=== PATIENT | female | born 1970 | race Caucasian/White ===

== ENCOUNTER 2021-02-06 17:11 | Observation (INO) ==
[2021-02-06] MEDS ORDERED: 0.9 % Sodium Chloride 1,000 ML IVC SCH (18:45)
[2021-02-06] MEDS ORDERED: Ondansetron 4 MG/2 ML VIAL IVP ONE (18:58)
[2021-02-06] MEDS ORDERED: *HR* HYDROmorphone (PF) 1 MG/ML SYRINGE IVP ONE (18:58)
[2021-02-06] MEDS ORDERED: Ondansetron 4 MG/2 ML VIAL IVP PRN (19:43)
[2021-02-06] MEDS ORDERED: Naloxone 0.4 MG/ML INJ IVP PRN (19:43)
[2021-02-06] MEDS ORDERED: modafiniL 100 MG TABLET PO PRN (19:47)
[2021-02-06 20:13] LABS: Bilirubin,Urine Negative (Negative); Blood,Urine Negative (Negative); Clarity,Urine Clear (Clear); Color,Urine Colorless (Yellow); Glucose,Urine (UA) Normal (Normal); Ketones,Urine 20 mg/dL (Negative); Leukocyte Esterase,Urine Negative (Negative); Nitrite,Urine Negative (Negative); PH,Urine 6.5 pH Units (5.0-8.0); Protein,Urine Trace mg/dL (Neg-Trace); Urobilinogen,Urine Normal (Normal)
[2021-02-06 20:16] LABS: Amphetamine Screen,Urine Negative ng/mL (Cutoff=1000); Barbiturate Screen,Urine Negative ng/mL (Cutoff=200); Benzodiazepines Screen,Urine Negative ng/mL (Cutoff=200); Cannabinoid Screen,Urine Negative ng/mL (Cutoff = 50); Cocaine Screen,Urine Negative ng/mL (Cutoff= 300); Opiate Screen,Urine Positive ng/mL (Cutoff=300); Phencyclidine Screen,Urine Negative ng/mL (Cutoff=25)
[2021-02-06 20:29] LABS: Ethanol < 10 mg/dL (Less than 10); Lipase > 1800 Units/L (11-82)
[2021-02-06] MEDS: *HR* HYDROmorphone (PF) 1 MG/ML SYRINGE IVP PRN (22:28)
[2021-02-06] MEDS: Ringers Solution, Lactated 1,000 ML IVC SCH (22:44)
[2021-02-07] MEDS: *HR* HYDROmorphone (PF) 1 MG/ML SYRINGE IVP PRN ×5 (02:44→23:18)
[2021-02-07 05:54] LABS: Prothrombin Time 10.9 Seconds (9.4-12.1)
[2021-02-07 06:02] LABS: Basophils % 0.2 %; Eosinophils # 0.1 K/mcL (0.0-0.6); Eosinophils % 1.3 %; Hematocrit 42.6 % (35.3-44.9); Hemoglobin 14.6 g/dL (11.5-15.4); Immature Granulocytes % 0.2 % (0-4); Lymphocytes # 0.8 K/mcL (0.6-4.6); Lymphocytes % 14.6 %; Mean Corpuscular HGB Conc 34.3 g/dL (31.6-35.5); Mean Corpuscular Hemoglobin 34.2 pg (28.0-33.3); Mean Corpuscular Volume 99.8 fL (83.0-100.0); Monocytes # 0.3 K/mcL (0.0-1.3); Monocytes % 5.5 %; Neutrophils # 4.1 K/mcL (1.6-8.9); Platelet Count 143 K/mcL (140-400); Red Blood Count 4.27 M/mcL (3.82-4.97); Red Cell Distribution Width 13.5 % (11.5-14.5); Segmented Neutrophils % 78.2 %; White Blood Count 5.3 K/mcL (4.3-11.1)
[2021-02-07] MEDS: Ringers Solution, Lactated 1,000 ML IVC SCH ×5 (06:04→18:54)
[2021-02-07 06:18] LABS: BUN/Creatinine Ratio 10 (6-26); Blood Urea Nitrogen 5 mg/dL (6-20); Calcium 9.2 mg/dL (8.6-10.3); Carbon Dioxide 25 mEq/L (23-29); Chloride 102 mEq/L (98-107); Chol/HDL Ratio 3.3 (0-4.9); Cholesterol 193 mg/dL (< 200); Glucose 82 mg/dL (70-105); HDL Cholesterol 59 mg/dL (40-59); LDL Cholesterol,Calculated 114 mg/dL (< 100); Magnesium 1.6 mg/dL (1.6-2.6); Osmolality,Calculated 282 (280-300); Potassium 3.4 mEq/L (3.5-5.1); Sodium 138 mEq/L (136-145); Triglycerides 101 mg/dL (< 150); eGFR For African Americans > 60 (> 60); eGFR For Non-African Americans > 60 (> 60)
[2021-02-07 06:38] LABS: Thyroid Stimulating Hormone 1.366 mcIU/mL (0.340-5.600)
[2021-02-07] MEDS: Lactobacillus 1 EACH CAP.SPRINK PO SCH (08:03)
[2021-02-07] MEDS: amLODIPine 5 MG TABLET PO SCH (08:03)
[2021-02-07] MEDS: Sennosides 8.6 MG TABLET PO SCH (08:03)
[2021-02-07] MEDS: *HR* Enoxaparin 40 MG/0.4 ML SYRINGE SQ SCH (08:05)
[2021-02-08] MEDS: Ringers Solution, Lactated 1,000 ML IVC SCH ×2 (00:12→05:43)
[2021-02-08 03:42] LABS: Hematocrit 31.7 % (35.3-44.9); Mean Corpuscular HGB Conc 34.1 g/dL (31.6-35.5); Mean Corpuscular Hemoglobin 34.8 pg (28.0-33.3); Mean Corpuscular Volume 102.3 fL (83.0-100.0); Mean Platelet Volume 10.2 fL (9.4-12.4); Platelet Count 116 K/mcL (140-400); Red Cell Distribution Width 13.4 % (11.5-14.5); White Blood Count 4.1 K/mcL (4.3-11.1)
[2021-02-08 03:44] LABS: Alanine Aminotransferase 26 Units/L (7-52); Albumin/Globulin Ratio 1.4 (1.1-2.2); Alkaline Phosphatase 67 Units/L (34-104); Aspartate Amino Transferase 30 Units/L (13-39); BUN/Creatinine Ratio 13 (6-26); Bilirubin,Total 0.4 mg/dL (0.3-1.0); Blood Urea Nitrogen 4 mg/dL (6-20); Calcium 8.4 mg/dL (8.6-10.3); Carbon Dioxide 23 mEq/L (23-29); Chloride 103 mEq/L (98-107); Globulin 2.2 g/dL (2.4-3.5); Glucose 71 mg/dL (70-105); Osmolality,Calculated 279 (280-300); Potassium 3.4 mEq/L (3.5-5.1); Sodium 137 mEq/L (136-145); Total Protein 5.2 g/dL (6.4-8.9); eGFR For African Americans > 60 (> 60); eGFR For Non-African Americans > 60 (> 60)
[2021-02-08 04:05] LABS: Hemoglobin 10.8 g/dL (11.5-15.4)
[2021-02-08] MEDS: *HR* HYDROmorphone (PF) 1 MG/ML SYRINGE IVP PRN (05:39)
[2021-02-08 09:13] LABS: Hematocrit 35.6 % (35.3-44.9); Hemoglobin 11.9 g/dL (11.5-15.4)
[2021-02-08] MEDS: *HR* Enoxaparin 40 MG/0.4 ML SYRINGE SQ SCH (10:23)
[2021-02-08] MEDS: Sennosides 8.6 MG TABLET PO SCH (10:24)
[2021-02-08] MEDS: Lactobacillus 1 EACH CAP.SPRINK PO SCH (10:24)
[2021-02-08] MEDS: amLODIPine 5 MG TABLET PO SCH (10:25)
[2021-02-08 10:37] VITALS: BP 176/103; PULSE 101; TEMP 99.2; O2SAT 96
== END 2021-02-08 14:19 | disposition home or self-care (01) ==
LOC: EMEROOARM 17:11 → 3ANU 17:11 → SUATTDRO 19:44 → 3ANU 20:08
PROVIDERS: ADMIT Family Medicine; ATTEND Family Medicine

== ENCOUNTER 2021-10-14 14:19 | Inpatient (IN) ==
[2021-10-14] MEDS ORDERED: Acetaminophen 325 MG TABLET PO PRN (16:47)
[2021-10-14] MEDS ORDERED: *HR* LORazepam 2 MG/ML VIAL IVP PRN (16:47)
[2021-10-14] MEDS ORDERED: *HR* LORazepam 1 MG TABLET PO PRN (16:47)
[2021-10-14] MEDS ORDERED: Naloxone 0.4 MG/ML INJ IVP PRN (16:47)
[2021-10-14] MEDS ORDERED: *HR* HYDROmorphone (PF) 1 MG/ML SYRINGE IVP PRN (16:51)
[2021-10-14] MEDS ORDERED: Ringers Solution, Lactated 1,000 ML IVC SCH (17:00)
[2021-10-14] MEDS ORDERED: Ondansetron 4 MG/2 ML VIAL ONE (18:35)
[2021-10-14] MEDS ORDERED: *HR* HYDROmorphone (PF) 1 MG/ML SYRINGE ONE (18:35)
[2021-10-14] MEDS ORDERED: *HR* Heparin 5,000 UNIT/ML VIAL ONE (18:36)
[2021-10-14] MEDS ORDERED: *HR* LORazepam 2 MG/ML VIAL ONE (18:36)
[2021-10-14] MEDS ORDERED: niCARdipine 20 MG/200 ML MLS IVC ONE (18:36)
[2021-10-14] MEDS ORDERED: Ringers Solution, Lactated 1,000 ML ONE ×2 (18:37→21:19)
[2021-10-14] MEDS: niCARdipine 20 MG/200 ML MLS IVC SCH (19:05)
[2021-10-14] MEDS: Ringers Solution, Lactated 1,000 ML IVC SCH (21:32)
[2021-10-15] MEDS: *HR* LORazepam 2 MG/ML VIAL IVP PRN (00:19)
[2021-10-15] MEDS: niCARdipine 20 MG/200 ML MLS IVC SCH ×5 (01:16→23:05)
[2021-10-15 02:16] LABS: Eosinophils % 0.2 %; Mean Corpuscular Volume 97.7 fL (83.0-100.0); Red Cell Distribution Width 12.5 % (11.5-14.5)
[2021-10-15 02:17] LABS: Hematocrit 43.3 % (35.3-44.9); Hemoglobin 15.4 g/dL (11.5-15.4); Immature Granulocytes % 0.4 % (0-4); Immature Platelets 11.5 % (1.1-6.1); Lymphocytes # 0.5 K/mcL (0.6-4.6); Lymphocytes % 8.7 %; Mean Corpuscular HGB Conc 35.6 g/dL (31.6-35.5); Mean Corpuscular Hemoglobin 34.8 pg (28.0-33.3); Mean Platelet Volume 11.5 fL (9.4-12.4); Monocytes # 0.2 K/mcL (0.0-1.3); Monocytes % 4.2 %; Neutrophils # 4.6 K/mcL (1.6-8.9); Red Blood Count 4.43 M/mcL (3.82-4.97); Segmented Neutrophils % 86.5 %; White Blood Count 5.3 K/mcL (4.3-11.1)
[2021-10-15 02:18] LABS: Platelet Count 77 K/mcL (140-400)
[2021-10-15 02:43] LABS: BUN/Creatinine Ratio 21 (6-26); Blood Urea Nitrogen 8 mg/dL (6-20); Calcium 9.6 mg/dL (8.6-10.3); Carbon Dioxide 27 mEq/L (23-29); Chloride 89 mEq/L (98-107); Glucose 122 mg/dL (70-105); Lipase 931 Units/L (11-82); Magnesium 1.7 mg/dL (1.6-2.6); Osmolality,Calculated 270 (280-300); Phosphorous 3.2 mg/dL (2.7-4.5); Potassium 3.2 mEq/L (3.5-5.1); Sodium 130 mEq/L (136-145)
[2021-10-15] MEDS: Ringers Solution, Lactated 1,000 ML IVC SCH ×3 (04:18→20:25)
[2021-10-15] MEDS: *HR* Heparin 5,000 UNIT/ML VIAL SQ SCH ×3 (06:02→18:39)
[2021-10-15] MEDS: Thiamine (B-1) 200 MG in 0.9 % Sodium Chloride 50 ML IVPB SCH (08:23)
[2021-10-15] MEDS: Folic Acid 1 MG in 0.9 % Sodium Chloride 50 ML IVPB SCH (08:24)
[2021-10-15] MEDS: amLODIPine 5 MG TABLET PO SCH (08:24)
[2021-10-15] MEDS ORDERED: D5% in Water 1,000 ML IVC PRN (12:36)
[2021-10-15] MEDS ORDERED: *HR* Dextrose 50 % in Water (Syg) 50 ML SYRINGE IVP PRN (12:36)
[2021-10-15] MEDS ORDERED: Dextrose Gel 15 GM/37.5 ML TUBE PO PRN ×2 (12:36)
[2021-10-15] MEDS: Melatonin 3 MG TABLET PO PRN (20:40)
[2021-10-16 02:00] LABS: Basophils % 0.2 %; Eosinophils % 0.2 %; Hematocrit 41.4 % (35.3-44.9); Hemoglobin 14.9 g/dL (11.5-15.4); Immature Granulocytes % 0.8 % (0-4); Immature Platelets 8.5 % (1.1-6.1); Lymphocytes # 0.8 K/mcL (0.6-4.6); Lymphocytes % 14.7 %; Mean Corpuscular Hemoglobin 34.2 pg (28.0-33.3); Mean Platelet Volume 11.1 fL (9.4-12.4); Monocytes # 0.4 K/mcL (0.0-1.3); Monocytes % 7.6 %; Platelet Count 114 K/mcL (140-400); Red Blood Count 4.36 M/mcL (3.82-4.97); Red Cell Distribution Width 12.5 % (11.5-14.5); Segmented Neutrophils % 76.5 %; White Blood Count 5.3 K/mcL (4.3-11.1)
[2021-10-16 02:22] LABS: BUN/Creatinine Ratio 17 (6-26); Blood Urea Nitrogen 5 mg/dL (6-20); Calcium 9.9 mg/dL (8.6-10.3); Carbon Dioxide 26 mEq/L (23-29); Chloride 93 mEq/L (98-107); Glucose 116 mg/dL (70-105); Magnesium 1.5 mg/dL (1.6-2.6); Osmolality,Calculated 276 (280-300); Phosphorous 3.2 mg/dL (2.7-4.5); Potassium 3.2 mEq/L (3.5-5.1); Sodium 134 mEq/L (136-145)
[2021-10-16] MEDS: Ringers Solution, Lactated 1,000 ML IVC SCH ×3 (03:46→12:46)
[2021-10-16] MEDS: *HR* Heparin 5,000 UNIT/ML VIAL SQ SCH ×2 (06:08→17:31)
[2021-10-16] MEDS: niCARdipine 20 MG/200 ML MLS IVC SCH ×4 (07:00→12:49)
[2021-10-16] MEDS: amLODIPine 5 MG TABLET PO SCH (08:53)
[2021-10-16] MEDS: Folic Acid 1 MG in 0.9 % Sodium Chloride 50 ML IVPB SCH (08:57)
[2021-10-16] MEDS: Thiamine (B-1) 200 MG in 0.9 % Sodium Chloride 50 ML IVPB SCH (08:57)
[2021-10-16] MEDS ORDERED: amLODIPine 5 MG TABLET PO SCH (09:00)
[2021-10-16] MEDS ORDERED: modafiniL 100 MG TABLET PO PRN (11:49)
[2021-10-16] MEDS ORDERED: *HR* Labetalol 20 MG/4 ML SYRINGE IVP PRN (15:11)
[2021-10-16] MEDS: Insulin LISPRO 300 UNITS/3 ML VIAL SUBQ SCH (17:52)
[2021-10-16] MEDS: Melatonin 3 MG TABLET PO PRN (20:37)
[2021-10-16] MEDS: Gabapentin 300 MG CAPSULE PO SCH (20:38)
[2021-10-17 03:20] LABS: Basophils % 0.2 %; Eosinophils % 0.7 %; Hematocrit 42.7 % (35.3-44.9); Hemoglobin 15.1 g/dL (11.5-15.4); Immature Granulocytes % 0.2 % (0-4); Lymphocytes % 21.2 %; Mean Corpuscular HGB Conc 35.4 g/dL (31.6-35.5); Mean Corpuscular Hemoglobin 33.9 pg (28.0-33.3); Mean Corpuscular Volume 95.7 fL (83.0-100.0); Mean Platelet Volume 10.1 fL (9.4-12.4); Monocytes # 0.6 K/mcL (0.0-1.3); Monocytes % 12.2 %; Platelet Count 179 K/mcL (140-400); Red Blood Count 4.46 M/mcL (3.82-4.97); Red Cell Distribution Width 12.5 % (11.5-14.5); Segmented Neutrophils % 65.5 %; White Blood Count 4.6 K/mcL (4.3-11.1)
[2021-10-17] MEDS: Ringers Solution, Lactated 1,000 ML IVC SCH ×2 (03:23→12:27)
[2021-10-17] MEDS: *HR* LORazepam 2 MG/ML VIAL IVP PRN (03:23)
[2021-10-17 03:42] LABS: BUN/Creatinine Ratio 16 (6-26); Blood Urea Nitrogen 6 mg/dL (6-20); Calcium 10.3 mg/dL (8.6-10.3); Carbon Dioxide 28 mEq/L (23-29); Chloride 91 mEq/L (98-107); Glucose 120 mg/dL (70-105); Magnesium 1.6 mg/dL (1.6-2.6); Osmolality,Calculated 275 (280-300); Phosphorous 4.3 mg/dL (2.7-4.5); Potassium 2.8 mEq/L (3.5-5.1); Sodium 133 mEq/L (136-145)
[2021-10-17] MEDS ORDERED: Magnesium Oxide 400 MG TABLET PO ONE (04:34)
[2021-10-17] MEDS: *HR* Heparin 5,000 UNIT/ML VIAL SQ SCH ×2 (06:07→17:34)
[2021-10-17] MEDS ORDERED: carvediloL 6.25 MG TABLET PO SCH (08:00)
[2021-10-17] MEDS: Insulin LISPRO 300 UNITS/3 ML VIAL SUBQ SCH ×3 (08:20→18:31)
[2021-10-17] MEDS: NIFEdipine XL (24 HR) 60 MG TAB.ER.24 PO SCH (08:25)
[2021-10-17] MEDS: carvediloL 6.25 MG TABLET PO SCH ×2 (08:27→17:34)
[2021-10-17] MEDS: Gabapentin 300 MG CAPSULE PO SCH ×2 (08:28→19:50)
[2021-10-17] MEDS: Aspirin Enteric Coated 81 MG Tablet PO SCH (08:28)
[2021-10-17] MEDS ORDERED: amLODIPine 5 MG TABLET PO SCH (09:00)
[2021-10-17] MEDS: Thiamine (B-1) 200 MG in 0.9 % Sodium Chloride 50 ML IVPB SCH (09:52)
[2021-10-17] MEDS: Folic Acid 1 MG in 0.9 % Sodium Chloride 50 ML IVPB SCH (09:52)
[2021-10-17] MEDS: Ondansetron 4 MG/2 ML VIAL IVP PRN ×2 (11:35→19:51)
[2021-10-17] MEDS: Nicotine 14 MG PATCH.TD24 TD SCH (12:22)
[2021-10-17] MEDS: niCARdipine 20 MG/200 ML MLS IVC SCH (12:28)
[2021-10-17] MEDS: Melatonin 3 MG TABLET PO PRN (19:50)
[2021-10-18 04:49] LABS: Basophils % 0.2 %; Eosinophils # 0.1 K/mcL (0.0-0.6); Eosinophils % 1.9 %; Hematocrit 43.2 % (35.3-44.9); Hemoglobin 14.9 g/dL (11.5-15.4); Immature Granulocytes % 0.2 % (0-4); Lymphocytes # 1.4 K/mcL (0.6-4.6); Mean Corpuscular HGB Conc 34.5 g/dL (31.6-35.5); Mean Corpuscular Hemoglobin 34.3 pg (28.0-33.3); Mean Corpuscular Volume 99.5 fL (83.0-100.0); Mean Platelet Volume 10.1 fL (9.4-12.4); Monocytes # 0.7 K/mcL (0.0-1.3); Monocytes % 14.8 %; Neutrophils # 2.7 K/mcL (1.6-8.9); Platelet Count 239 K/mcL (140-400); Red Blood Count 4.34 M/mcL (3.82-4.97); Red Cell Distribution Width 12.4 % (11.5-14.5); Segmented Neutrophils % 54.9 %; White Blood Count 4.9 K/mcL (4.3-11.1)
[2021-10-18] MEDS: *HR* Heparin 5,000 UNIT/ML VIAL SQ SCH (05:23)
[2021-10-18] MEDS: Gabapentin 300 MG CAPSULE PO SCH (07:38)
[2021-10-18] MEDS: carvediloL 6.25 MG TABLET PO SCH (07:38)
[2021-10-18] MEDS: Nicotine 14 MG PATCH.TD24 TD SCH (07:38)
[2021-10-18] MEDS: Aspirin Enteric Coated 81 MG Tablet PO SCH (07:38)
[2021-10-18] MEDS: Insulin LISPRO 300 UNITS/3 ML VIAL SUBQ SCH (07:39)
[2021-10-18] MEDS: NIFEdipine XL (24 HR) 60 MG TAB.ER.24 PO SCH (07:39)
[2021-10-18 08:11] VITALS: O2SAT 97
[2021-10-18 09:44] LABS: BUN/Creatinine Ratio 23 (6-26); Blood Urea Nitrogen 10 mg/dL (6-20); Calcium 9.6 mg/dL (8.6-10.3); Carbon Dioxide 23 mEq/L (23-29); Chloride 97 mEq/L (98-107); Glucose 161 mg/dL (70-105); Osmolality,Calculated 275 (280-300); Potassium 4.5 mEq/L (3.5-5.1); Sodium 131 mEq/L (136-145)
[2021-10-18 10:44] VITALS: BP 127/74; PULSE 78; TEMP 98.3
[2021-10-18 11:44] LABS: Magnesium 1.6 mg/dL (1.6-2.6); Phosphorous 4.3 mg/dL (2.7-4.5)
== END 2021-10-18 11:53 | disposition home or self-care (01) | DRG 438 ==
LOC: 2NNU → SUATTDRO 16:03 → 3ANU 10-17 11:44
PROVIDERS: ADMIT Internal Medicine; ATTEND Pharmacist